=== PATIENT | female | born 1985 ===

== ENCOUNTER 2023-04-26 18:38 | Inpatient (IN) | payer OTHER ==
[~2023-04-26] VITALS: Ht 152.4 cm; Wt 104.5 kg
--- NOTE | 2023-04-26 18:10 | NUR ---
PATIENT TO FLOOR AT APPROXIMATELY 1800. PATIENT REPORTS PAIN 10/10. INTAKE COMPLETE. VERBAL ORDERS RECEIVED.
[2023-04-26] MEDS ORDERED: LR 1,000 ML IV SCH (19:00)
[2023-04-26] MEDS ORDERED: Morphine 4 MG/ML VIAL IV PRN (19:00)
[2023-04-26] MEDS ORDERED: Ondansetron 4 MG/2 ML VIAL IV PRN (19:00)
[2023-04-26 19:08] VITALS: BP 130/87; PULSE 81; TEMP 98.7
--- NOTE | 2023-04-26 20:00 | NUR ---
PT RESTING. NO DISTRESS. WAKES EASLIY. PT REPORTS STILL HAVING LT QUAD ABD PAIN. DENIES NAUSEA. LR INFUSING AT 100CC TO RT AC. RECEIVED MS AT 191. DOZING OFF AND ON. ENC PT TO USE CALL LIGHT OFR SAFETY. NO OTHER NEEDS AT THIS TIME. ORDER FOR ZOSYN 4.5G OVWER 30MIN.
[2023-04-26 20:18] VITALS: BP 129/72; PULSE 83; TEMP 99.9
[2023-04-26] MEDS ORDERED: Acetaminophen 325 MG TAB PO PRN (20:30)
[2023-04-26 20:44] VITALS: BP_SYST 129
[2023-04-26 23:48] VITALS: BP 151/74; PULSE 99; TEMP 100.2
[2023-04-27] VITALS (12 sets, daily range): BP systolic 109–151; BP diastolic 68–83; PULSE 78–95; TEMP 98.2–99.9
--- NOTE | 2023-04-27 03:05 | NUR ---
PT C/O RT ARM NUMBNESS. PT HAS KEPT IT STRAIGHT BECAUSE IV POSITIONAL IN RT AC SPACE. GOOD BLOOD RETURN. NO REDNESS OR SWELLING. ENC PT TO PUMP RT FIST AND DO ROM OF RT ARM. PROVIDED WARM PACK. SEE MAR FOR MS GIVEN FOR ABD PAIN. DENIES NAUSEA. ENC I.S USE. DEMONSTRAED PROPER USE. PT ABLE TO PULL 500- 750ML. GAVE TYLENOL FOR TEMP.
[2023-04-27 06:26] LABS: HEMATOCRIT 38.4 % (37.0-47.0); HEMOGLOBIN 13.2 g/dl (12.5-16.0); MEAN CELL VOLUME 89 fl (80.0-100.0); MEAN CORPUSCULAR HEMOGLOBIN 31 pg (27-31); MEAN CORPUSCULAR HGB CONC 34 g/dl (33.0-37.0); MEAN PLATELET VOLUME 12.9 fl (7.4-10.4); PLATELET COUNT 181 K/mm3 (130-400); RED BLOOD COUNT 4.33 M/mm3 (4.10-5.30)
[2023-04-27 06:54] LABS: CALCIUM 8.7 mg/dL (8.4-10.2); CREATININE, serum 0.79 mg/dL (0.57-1.11)
[2023-04-27 07:05] LABS: POTASSIUM 2.9 mmol/L (3.5-4.5)
--- NOTE | 2023-04-27 07:05 | NUR ---
reported critical lab results to primary nurse
[2023-04-27] MEDS ORDERED: NS 1,000 ML IV SCH (07:45)
[2023-04-27] MEDS ORDERED: *Potassium Replacement Protocol MC SCH (07:45)
[2023-04-27] MEDS ORDERED: Potassium Chloride 100 ML IV SCH ×2 (07:45→11:00)
[2023-04-27] MEDS ORDERED: HYDROmorphone 0.5 MG/0.5 ML SYRINGE IV PRN (07:45)
--- NOTE | 2023-04-27 07:52 | NUR ---
PATIENT ALERT AND ORIENTED BUT DROWSY. PATIENT REPORTS PAIN 10/10, REPORTS MORPHINE IS NOT HELPING WITH PAIN. IV TO RIGHT AC WITH NS RUNNING AT 100ML/HOUR, SLOW ZOSYN ON PIGGY BACK. PATIENT TOLERATING CLEARS BUT INTAKE IS LOW. PATIENT VOIDING WITHOUT ISSUES. NO FURTHER NEEDS. CALL LIGHT IN REACH.
[2023-04-27] MEDS ORDERED: Ketorolac 15 MG/ML VIAL IV PRN (09:00)
--- NOTE | 2023-04-27 11:15 | NUR ---
loft worker met with pt to discuss discharge planning. Pt reports she is sleepy, but willing to answer SW's questions. Pt reports she lives in [place] with her spouse, Frank [phone]. She sees Dr. Vallecillo at [facility] and obtains her medications from there with no issues. She reports as independent with ADLS and uses no DME. She does not have one and declined one at this time. Discharge Plan: Home
--- NOTE | 2023-04-27 12:50 | NUR ---
ENTERED PT ROOM AT 0715 TO COMPLETE SHIFT ASSESSMENT WITH INSTRUCTOR AND NOTICED ZOSYN PIGGYBACKED WITH LACTATED RINGERS. PRIMARY NURSE NOTIFIED. NURSE VERBALIZED SHE WOULD CONTACT PHYSICIAN. RETURNED TO PATIENT'S ROOM WITH INSTRUCTOR AND PRIMARY NURSE. DISCONTINUED INFUSION AND DISPOSED OF TUBING AND MEDICATIONS. PHYSICAL ASSESSMENT AND VITAL SIGNS COMPLETED. PT A&O X4, LUNG SOUNDS CLEAR, HEART TONES S1 AND S2 REGULAR, BOWEL ACTIVE X4, NO ACUTE DISTRESS BEYOND NOTED ABDOMINAL PAIN. ORDERS OBTAINED BY PRIMARY NURSE TO CONTINUE ZOSYN ADMINISTRATION AND CHANGE CONTINUOUS FLUIDS TO NORMAL SALINE. IV SITE FLUSHED. ZOSYN AND NS PULLED AND STARTED ON NEW TUBING WITH NS PRIMARY AND ZOSYN PIGGYBACK. CALLED PHARMACY TO INVESTIGATE POTENTIAL REACTIONS. PHARMACY STATED TO WATCH FOR IV SITE REACTIONS, MONITOR VITAL SIGNS, AND NOTIFY PROVIDER. CONTINUED TO MONITOR PT DURING REST OF MY SHIFT. PT REMAINED ALERT AND ORIENTED. NO CARDIOPULMONARY DISTRESS AND IV SITE PATENT.
--- NOTE | 2023-04-27 14:53 | NUR ---
D: Initial visit: Lawn Care Professional stopped by room on rounds. Pt was resting and content. A: Pt has no needs right now, but did ask for a prayer. Lawn Care Professional prayed with pt. Pt appreciated the visit. P: Lawn Care Professional informed pt that if she needed anything from the disc pad grinding machine feeder area to let her nurse know. Lawn Care Professional will follow up as needed.
[2023-04-27 17:55] LABS: COLLECTION METHOD CLEAN CATCH
[2023-04-27 18:05] LABS: PH 5.5 (5.0-8.5); URINE APPEARANCE CLOUDY (CLEAR/HAZY); URINE BLOOD TRACE (NEGATIVE); URINE COLOR ORANGE (YELLOW); URINE GLUCOSE NEGATIVE (NEGATIVE); URINE KETONE 2+ (NEGATIVE); URINE NITRATE POSITIVE (NEGATIVE); URINE PROTEIN(semi-quant) 1+ (NEGATIVE)
--- NOTE | 2023-04-27 19:16 | NUR ---
report received from lou byers. pt resting in bed watching tv. pt denies pain. call light in reach. all needs met at this time.
[2023-04-27] MEDS ORDERED: Ondansetron 4 MG/2 ML VIAL IV ONE (21:45)
[2023-04-27] MEDS ORDERED: Promethazine 25 MG TAB PO PRN (21:45)
--- NOTE | 2023-04-27 21:51 | NUR ---
pt reporting increased nausea. too early to give prn zofran. called supervisor concrete pipe plant dr esparza. new order for 4mg zofran now. new order for 25mg phenergen tablet Q6H PRN. 4mg IV zofran now administered per orders. call light in reach. all needs met at this time.
--- NOTE | 2023-04-27 22:46 | NUR ---
shift assessment complete, see documentation. pt resting in bed. pt denies pain currently. iv abx running to right ac without issue. call light in reach. all needs met at this time.
[2023-04-28] VITALS (12 sets, daily range): BP systolic 105–151; BP diastolic 67–83; PULSE 63–83; TEMP 98.4–100.6
--- NOTE | 2023-04-28 04:24 | NUR ---
pt has been resting well tonight. pt has ambulated to bathroom with sba without issue. pt has not reported pain through the night. call light in reach. all needs met at this time.
[2023-04-28 06:52] LABS: HEMATOCRIT 37.5 % (37.0-47.0); HEMOGLOBIN 12.6 g/dl (12.5-16.0); MEAN CELL VOLUME 90 fl (80.0-100.0); MEAN CORPUSCULAR HEMOGLOBIN 30 pg (27-31); MEAN CORPUSCULAR HGB CONC 34 g/dl (33.0-37.0); MEAN PLATELET VOLUME 12.3 fl (7.4-10.4); PLATELET COUNT 161 K/mm3 (130-400); RED BLOOD COUNT 4.15 M/mm3 (4.10-5.30); REDCELL DISTRIBUTION WIDTH-CV 11.9 % (11.5-14.5)
[2023-04-28 07:12] LABS: CALCIUM 8.4 mg/dL (8.4-10.2); CREATININE, serum 0.69 mg/dL (0.57-1.11); POTASSIUM 3.7 mmol/L (3.5-4.5)
[2023-04-28 07:14] LABS: C-REACTIVE PROTEIN 33.7 mg/dL (0.00-0.50)
[2023-04-28] MEDS ORDERED: Potassium Chloride 100 ML IV SCH (07:30)
--- NOTE | 2023-04-28 08:20 | NUR ---
PATIENT ALERT AND ORIENTED X4. VSS. PATIENT HERE FOR PERF APPY. PATIENT REPORTS PAIN 10/10, REQUESTS PAIN MEDICATION. PATIENT REQUESTS PRN TORADOL AND ZOFRAN. PATIENT TOLERATED CLEAR LIQUIDS. LOW GRADE TEMP THIS MORNING, PO TYLENOL ADMINISTERED. PATIENT VOIDING. NO FURTHER NEEDS. CALL LIGHT IN REACH.
--- NOTE | 2023-04-28 19:46 | NUR ---
report received from lou byers. pt resting in bed watching tv. pt reports her pain is tolerable currently. call light in reach. all needs met at this time.
[2023-04-29] VITALS (12 sets, daily range): BP systolic 147–169; BP diastolic 78–92; PULSE 62–73; TEMP 97.5–99.1
--- NOTE | 2023-04-29 00:24 | NUR ---
shift assessment complete, see documentation. pt tolerating pain well. pt reporting she has no pain currently. pt did take a shower. pt right ac iv pulled out during shower. left fa iv still patent with iv abx and ivf running well. pt now resting in bed. call light in reach. all needs met at this time.
--- NOTE | 2023-04-29 01:09 | NUR ---
pt ambulated to bathroom with steady gait. after returning pt reporting increased abd pain rated 7/10. prn dilaudid administered per orders. call light in reach. all needs met at this time.
--- NOTE | 2023-04-29 04:41 | NUR ---
pt reporting increased abd pain after getting back from the bathroom. pt rating pain 10/10. prn dilaudid administered per orders. call light in reach. all needs met at this time.
[2023-04-29 07:23] LABS: MEAN CELL VOLUME 91 fl (80.0-100.0); MEAN CORPUSCULAR HEMOGLOBIN 30 pg (27-31); MEAN CORPUSCULAR HGB CONC 33 g/dl (33.0-37.0); MEAN PLATELET VOLUME 12.3 fl (7.4-10.4); PLATELET COUNT 161 K/mm3 (130-400); RED BLOOD COUNT 3.96 M/mm3 (4.10-5.30); REDCELL DISTRIBUTION WIDTH-CV 11.7 % (11.5-14.5)
--- NOTE | 2023-04-29 07:40 | NUR ---
Pt doing okay this morning. Having complaints of pain, reports same as it has been. Pt was sleeping when we first entered the room, rating pain 10/10. PRN pain medication given
[2023-04-29 07:41] LABS: C-REACTIVE PROTEIN 24.31 mg/dL (0.00-0.50); CREATININE, serum 0.62 mg/dL (0.57-1.11); POTASSIUM 3.5 mmol/L (3.5-4.5)
[2023-04-29] MEDS ORDERED: Iohexol 300 - 100 ML VIAL IV ONE (11:03)
--- NOTE | 2023-04-29 11:30 | NUR ---
Pt off the floor for CT scan
--- NOTE | 2023-04-29 12:30 | NUR ---
PT returned back from CT
--- NOTE | 2023-04-29 13:17 | NUR ---
Initial visit; Patient thanked Floor Layer Tile for looking in on her. She states she is very ill and would appreciate prayer and God's blessings. Floor Layer Tile prayed and offered to keep Opal in her prayers.
--- NOTE | 2023-04-29 15:00 | NUR ---
PT doing okay. She is tolerating low fiber diet, taking things slow. Pt reports having pain, but is able to rest off and on. Pt using call light to get up to the restroom. No other needs at this time, will continue to monitor
--- NOTE | 2023-04-29 19:58 | NUR ---
report received from zaira byers. pt resting in bed watching tv. pt reports her pain is tolerable right now. call light in reach. all needs met at this time.
--- NOTE | 2023-04-29 21:50 | NUR ---
dr lynch called. new order for PO [place] 1tab Q4H PRN for pain.
--- NOTE | 2023-04-29 22:30 | NUR ---
shift assessment complete, see documentation. pt tolerating pain well tonight. pt reporting tolerable pain right now. iv abx running without issue. pt resting in bed. call light in reach. all needs met at this time.
--- NOTE | 2023-04-29 23:48 | NUR ---
pt reporting 10/10 abd pain. prn dilaudid administered per orders. pt encouraged to call before pain reaches 10/10. pt provides understanding. call light in reach. all needs met at this time.
[2023-04-30] VITALS (13 sets, daily range): BP systolic 135–178; BP diastolic 79–95; PULSE 58–78; TEMP 97.9–98.4
--- NOTE | 2023-04-30 01:34 | NUR ---
pt reported dilaudid decreased her pain some but not much. prn norco administered per orders at 0054. pt now reporting pain has decreased to 5/10 and is tolerable. pt encouraged to call if her pain begins increasing again. call light in reach. all needs met at this time.
--- NOTE | 2023-04-30 06:13 | NUR ---
pt reporting increased abd pain rated 7/10. pt refused norco stating "I am in so much pain". prn dilaudid administered per orders. call light in reach. all needs met at this time.
[2023-04-30] MEDS ORDERED: NORCO 325 MG-51 TAB PO (07:36)
[2023-04-30] MEDS ORDERED: AMOXICILLIN 8751 TAB PO (07:36)
--- NOTE | 2023-04-30 07:40 | NUR ---
PT having complaints of pain, PRN pain medication given. Encourage pt to continue to use the IS which she did at this time. I did assist with ordering her breakfast. Discussed ambulating in the halls in about 30-45 minutes after pain medication has started working
[2023-04-30] MEDS ORDERED: Potassium Bicarbonate/Citrate 20 MEQ Effervescent TAB PO ONE (07:45)
--- NOTE | 2023-04-30 10:30 | NUR ---
Pt tolerated breakfast. She stated she is still having pain, but pain medication does help. Pt has been up walking in the halls. She did refuse initially, but told her she needed to go for a walk at least every 2-3 hours. No needs at this time
--- NOTE | 2023-04-30 12:45 | NUR ---
PT getting in to the shower at this time. Reports pain is tolerable
--- NOTE | 2023-04-30 14:16 | NUR ---
Pt recently done with her shower. Pt having an increase in pain. PRN IV pain medication given per request. Pt hoping to get a nap now.
--- NOTE | 2023-04-30 15:16 | NUR ---
TAKING OVER CARE OF PATIENT, RECIEVED REPORT FROM MELCHOR Pike RN. NO CHANGES IN CONDITION FROM PREVIOUS ASSESSMENT.
[2023-05-01] VITALS (9 sets, daily range): BP systolic 156–173; BP diastolic 90–98; PULSE 64–67; TEMP 98–98.6
--- NOTE | 2023-05-01 03:44 | NUR ---
NURSING SHIFT ASSESSMENT COMPLETED. THE PATIENT WAS ALERT AND ORIENTED. THE PLAN OF CARE AND PRN PAIN MEDICATIONS REVIEWED. FRESH WATER WAS PROVIDED. CALL LIGHT AVAILABLE. THE PATIENT IS UP INDEPENDENTLY IN THE ROOM. BED IN THE LOW POSITION.
[2023-05-01 06:22] LABS: HEMOGLOBIN 12.3 g/dl (12.5-16.0); MEAN CELL VOLUME 89 fl (80.0-100.0); MEAN CORPUSCULAR HEMOGLOBIN 30 pg (27-31); MEAN CORPUSCULAR HGB CONC 34 g/dl (33.0-37.0); MEAN PLATELET VOLUME 11.5 fl (7.4-10.4); PLATELET COUNT 221 K/mm3 (130-400); RED BLOOD COUNT 4.07 M/mm3 (4.10-5.30); REDCELL DISTRIBUTION WIDTH-CV 11.7 % (11.5-14.5)
[2023-05-01 06:40] LABS: C-REACTIVE PROTEIN 8.11 mg/dL (0.00-0.50); CALCIUM 8.6 mg/dL (8.4-10.2); CREATININE, serum 0.67 mg/dL (0.57-1.11); POTASSIUM 3.6 mmol/L (3.5-4.5)
[2023-05-01] MEDS ORDERED: Potassium Bicarbonate/Citrate 20 MEQ Effervescent TAB PO SCH (07:30)
--- NOTE | 2023-05-01 08:47 | NUR ---
Pt doing well this morning, she is hoping to get to go home today. She made it most of the night without any pain medication. Did give her pain pill with breakfast. No other needs, will continue to monitor
--- NOTE | 2023-05-01 13:00 | NUR ---
Pt continues to do well. Still lacks motivation to get up and walk. When it is mentioned, she somewhat whines and states she doesn't want to, but then eventually will. No needs, will continue to monitor
--- NOTE | 2023-05-01 15:56 | NUR ---
Pt reports that she is getting up almost every hour to void.
--- NOTE | 2023-05-01 17:06 | NUR ---
Reviewed discharge instructions with pt. PT reports that her ride will not be here until closer to 6:30.
== END 2023-05-01 18:05 | disposition home or self-care (01) | DRG 373 ==
LOC: SURG 18:38
PROVIDERS: ADMIT Surgery
DX: K35.32 Acute appendicitis with perforation, localized peritonitis, and gangrene, without abscess (principal); E87.6 Hypokalemia; Z23 Encounter for immunization
CPT/HCPCS: G0378; G0379; J1170; J1885; J2270; J2405; J2543; J3480; J7030; J7120; Q9967